=== PATIENT | male | born 1985 | race Caucasian/White ===

== ENCOUNTER 2024-11-11 23:17 | Emergency (ER) | payer SELFPAY ==
[2024-11-12] MEDS ORDERED: Dexamethasone 10 MG/ML VIAL ONE (02:31)
== END 2024-11-12 02:40 | disposition home or self-care (01) ==
LOC: CSHERS 23:17
DX: M54.12 Radiculopathy, cervical region (principal); F17.210 Nicotine dependence, cigarettes, uncomplicated
CPT/HCPCS: 72125; 96372; J1100